=== PATIENT | male | born 1990 | race Caucasian/White ===

== ENCOUNTER 2021-01-09 11:12 | Emergency (ER) | payer SELFPAY ==
[~2021-01-09] VITALS: Ht 177.8 cm; Wt 106.0 kg
[2021-01-09 14:04] VITALS: BP 145/100
[2021-01-09] MEDS ORDERED: IBUP-1984 PO (14:08)
== END 2021-01-09 14:26 | disposition home or self-care (01) ==
LOC: ER 11:13
DX: M25.461 Effusion, right knee (principal); Z79.899 Other long term (current) drug therapy
CPT/HCPCS: 29505; 73564; 99283

== ENCOUNTER 2024-09-23 13:05 | Emergency (ER) | payer BC ==
[~2024-09-23] VITALS: Ht 175.3 cm; Wt 121.0 kg
[2024-09-23] MEDS ORDERED: CEPH-585 PO (14:47)
[2024-09-23 14:57] VITALS: BP 136/74; PULSE 74; RESP 16; TEMP 98.6; O2SAT 97
== END 2024-09-23 14:59 | disposition home or self-care (01) ==
LOC: ER 13:06
DX: L03.116 Cellulitis of left lower limb (principal)
CPT/HCPCS: 73660; 99283